=== PATIENT | female | born 1950 | race Caucasian/White ===

== ENCOUNTER 2024-12-15 13:25 | Emergency (ER) | payer BC, MEDICARE ==
[~2024-12-15] VITALS: Ht 157.5 cm; Wt 59.6 kg
[2024-12-15 13:31] VITALS: BP 138/75; PULSE 60; O2SAT 98
--- NOTE | 2024-12-15 14:12 | RADIOLOGY REPORT ---
CLINICAL INDICATION: Shoulder Pain TECHNIQUE: Left DI SHOULDER, COMPLETE (MIN 2 VWS) Comparison: None FINDINGS/IMPRESSION: : There is no evidence of displaced fracture or dislocation. Diffuse osteopenia. Diffuse degenerative changes. Subtle cortical irregularity at the lateral margin of the humeral head may represent an age indetermi marjorie nondisplaced fracture versus chronic degenerative change.
--- NOTE | 2024-12-15 15:17 | Physician Documentation ---
History of Present Illness ~ Chief Complaint: Arm Pain Stated Complaint: L SHOULDER PAIN Time Seen by MD: 15:12 Primary Medical Doctor: Dr. Barrios HPI Patient is seen today with complaints of left-sided shoulder pain after she fell while hiking and her tried to pull her up the hill and she felt her shoulder come out of socket and heard a pop. Patient has no other concern or complaint at this time. Patient denies any numbness or tingling of her left upper extremity. She has no other concern or complaint at this time. She complains of significant decreased range of motion of her left shoulder. Tetanus within 5 years: Yes Medication Reconciliation Allergies: Coded Allergies: No Known Allergies (Unverified , 12/15/24) Scheduled Meloxicam (Meloxicam), 1 TAB PO DAILY Scheduled PRN Hydrocodone Bit/Acetaminophen 5/325 MG ([place] 5/325 MG), 1-2 TAB PO Q6H PRN for pain Past Medical History Past Medical History: Anxiety, Depression Alcohol Use: None Drug Use: none Lives with: Spouse Lives In: Home Occupation: employed Review of Systems Constitutional: Denies: chills, fever, weakness Eyes: Denies: pain, blurred vision ENT: Denies: ear pain, nose pain, throat pain, mouth pain Respiratory: Denies: cough, shortness of breath Cardiovascular: Denies: chest pain, palpitations Gastrointestinal: Denies: abdominal pain, nausea, vomiting Genitourinary: Denies: burning, dysuria Female Genitalia: Denies: vaginal discharge, pelvic pain Neurological: Denies: headache, dizziness Musculoskeletal: Denies: pain, swelling Integumentary: Denies: rash, lesions Allergic/Immunologic: Denies: hives, itching Hematologic/Lymphatic: Denies: no symptoms reported Psychiatric: Denies: depression, anxiety Physical Exam Vital Signs: Temperature: 97.6, Heart Rate: 60, Respiratory Rate: 16, BP: 138/75, Pulse Oximetry: 98, Weight: 59.600 Oxygen Flow Rate: 0 Physical Exam General: Awake and Alert, no acute distress. HEENT: Conjunctiva pink, Sclera clear, Mucus Membranes moist. Neck: Supple without masses and tenderness. Resp: Unlabored. Lungs clear to auscultation bilaterally. Heart: Regular Rate and rhythm, normal S1 and S2 without murmur, rub or gallop. Musculoskeletal: Patient on exam does have significant decreased range of motion of the left shoulder in abduction and flexion because of significant pain. Patient is neurovascularly intact distally of the left upper extremity. Motor function and strength intact distally. Extremities: No cyanosis,clubbing or edema. Skin: Warm and Dry. Progress Results/Orders Results/Orders Orders - GALELUTHERSANDOVAL R PAC Hydrocodone/Apap 5/325mg Tab ([place] 5/32 (12/15/24 15:23) Ortho Orders (12/15/24 15:25) Completed Orders - SANDOVAL GALE PAC Ketorolac Trometh 15mg/Ml Vial (Toradol (12/15/24 15:23) Vital Signs 12/15/24 13:31 Temp 97.6 Pulse 60 Resp 16 B/P (MAP) 138/75 Pulse Ox 98 O2 Flow Rate 0 EKG/XRAY/CT/US/VASC/MRI Bone/Soft Tissue X-Ray (Ext.) : Additional Comment DIAGNOSTIC RADIOLOGY Patient: JULIO JUNIOR Medical Record: [id number] [place] : 1950, Age: 74 Sex: Female Location: ER Patient Status: [facility] ER Service Date/Time: 12/15/241333 Ordering Physician: TRAM QUINTANA DO Exam: SHOULDER, COMPLETE (MIN 2 VWS) CLINICAL INDICATION: Shoulder Pain TECHNIQUE: Left DI SHOULDER, COMPLETE (MIN 2 VWS) Comparison: None FINDINGS/IMPRESSION: : There is no evidence of displaced fracture or dislocation. Diffuse osteopenia. Diffuse degenerative changes. Subtle cortical irregularity at the lateral margin of the humeral head may represent an age indeterminate nondisplaced fracture versus chronic degenerative change. Electronically Signed by:UMANG TRINIDAD MD Date & Time: 12/15/24 1409 Dictated by: UMANG TRINIDAD MD Dictation date and time: 12/15/24 3433 Primary Care Provider: NO PRIMARY CARE PROVIDER cc: TRAM QUINTANA DO ~ Medical Decision Making Findings Patient is seen today with complaints of left-sided shoulder pain after she fell while hiking and her tried to pull her up the hill and she felt her shoulder come out of socket and heard a pop. Patient has no other concern or complaint at this time. Patient denies any numbness or tingling of her left upper extremity. She has no other concern or complaint at this time. She complains of significant decreased range of motion of her left shoulder. Patient did have x-ray taken of the left shoulder today that did not show any sign of displaced fracture however did show arthritis of the left shoulder joint and possible nondisplaced fracture of the humeral head. Patient will return to ED or follow up with primary care in 7-10 days for repeat x-ray of the left shoulder if no better as needed sooner. Patient will follow up with primary care for referral to orthopedic shoulder specialist and/or MRI as soon as possible. Patient likely has significant rotator cuff tear. Return to ED with any worsening, concerning or changing symptoms. Patient was given Toradol 15 mg IM in the ED today as well as [place] 5/325 mg by mouth in the ED as well as prescription to take home of [place] and meloxicam 15 mg one tab by mouth to be taken with food. Departure Disposition: 01 HOME / SELF CARE / HOMELESS Impression: Primary Impression: Rotator cuff tear arthropathy of left shoulder Condition: Improved Discharge Instructions: Rotator Cuff Tear Additional Instructions: Patient did have x-ray taken of the left shoulder today that did not show any sign of displaced fracture however did show arthritis of the left shoulder joint and possible nondisplaced fracture of the humeral head. Patient will return to ED or follow up with primary care in 7-10 days for repeat x-ray of the left shoulder if no better as needed sooner. Patient will follow up with primary care for referral to orthopedic shoulder specialist and/or MRI as soon as possible. Patient likely has significant rotator cuff tear. Return to ED with any worsening, concerning or changing symptoms. Patient was given Toradol 15 mg IM in the ED today as well as [place] 5/325 mg by mouth in the ED as well as prescription to take home of [place] and meloxicam 15 mg one tab by mouth to be taken with food. Referrals: NO PRIMARY CARE PROVIDER (PCP) Prescriptions Meloxicam (Meloxicam) 15 Mg Tablet 1 TAB PO DAILY for 30 Days, #30 TAB 0 Refills Prov: SANDOVAL GALE 12/15/24 Hydrocodone Bit/Acetaminophen 5/325 MG ([place] 5/325 MG) 5 Mg/325 Mg Tablet 1-2 TAB PO Q6H PRN for pain for 7 Days, #30 TAB Prov: SANDOVAL GALE 12/15/24 Signature Scribe Signature: No scribe Attestation: No scribe SANDOVAL GALE Dec 15, 2024 15:17
[2024-12-15] MEDS ORDERED: MELO-102 PO (15:21)
[2024-12-15] MEDS ORDERED: HYDR-3965 PO (15:21)
[2024-12-15 15:42] VITALS: RESP 16
[2024-12-15] MEDS: HYDROcodone/acetaminophen 5mg/325mg tablet PO STA (15:42)
[2024-12-15] MEDS: ketorolac trometh 15mg/ml vial 15 MG/ML ML IM STA (15:42)
[2024-12-15 15:52] VITALS: TEMP 97.6
== END 2024-12-15 15:54 | disposition home or self-care (01) ==
LOC: ER 13:25
DX: S43.422A Sprain of left rotator cuff capsule, initial encounter (principal); X58.XXXA Exposure to other specified factors, initial encounter; Y93.89 Activity, other specified; Y92.89 Other specified places as the place of occurrence of the external cause; Y99.8 Other external cause status
CPT/HCPCS: 73030; 96372; 99283; A4565; J1885